=== PATIENT | male | born 1955 | race Caucasian/White ===

== ENCOUNTER 2021-06-05 21:27 | Emergency (ER) | payer OTHER ==
[~2021-06-05] VITALS: Ht 170.2 cm; Wt 81.6 kg
[2021-06-05 21:52] VITALS: BP_SYST 132
[2021-06-05] MEDS ORDERED: IBUP-1971 PO (23:12)
[2021-06-05] MEDS ORDERED: PRED20TA PO (23:12)
[2021-06-05 23:20] VITALS: BP_SYST 132
== END 2021-06-05 23:20 | disposition home or self-care (01) ==
LOC: SED 21:27
DX: U07.1 COVID-19 (principal); R05 Cough; J45.909 Unspecified asthma, uncomplicated
CPT/HCPCS: 87426; 99283; C9803; U0003; 36415